=== PATIENT | female | born 1960 | race African-American/Black ===

== ENCOUNTER → 2016-03-27 | Day surgery (SDC) | payer OTHER ==
--- NOTE | 2016-03-28 09:57 | PATH ---
Surgical Pathology Report Patient Name: SHLOMO CHACON [facility]. Rec. #: [id number] /Age/Gender: 1960 (Age: 55) / F Account: [id number] Location: [facility] RADIOLOGY U Taken: 03/27/2016 Received: 03/27/2016 Reported: 03/28/2016 Physicians: Tyra Thrasher M.D. Specimen(s) Received RIGHT BREAST BIOPSY 11 O'CLOCK, 6CM FN Clinical History Hypoechoic mass 11:00, 6 cmfn Probably benign Final Diagnosis RIGHT BREAST, 11:00 6 CM FROM NIPPLE, ULTRASOUND GUIDED NEEDLE CORE BIOPSY: SCLEROSED FIBROADENOMA. Electronically Signed Baron Zuniga M.D. Gross Description Received in formalin, labeled "right breast biopsy 11:00, 6 cmfn," are 3 fernandez-yellow, cylindrical portions of fibroadipose tissue ranging from 2.0-2.6 cm. in length and averaging 0.2 cm. in diameter. The specimen is submitted in toto in one cassette. Time to formalin fixation: 2 minutes Total formalin fixation time: Approximately 9 hours. /03/27/2016 saudi03/27/2016
== END | disposition home or self-care (01) ==
LOC: FRADUS-SUR 08:05
PROVIDERS: ATTEND Family Medicine
PROC: 0HBT3ZX Excision of Right Breast, Percutaneous Approach, Diagnostic (ICD-10-PCS; principal; 2016-03-27)
DX: N63 Unspecified lump in breast (principal); D24.1 Benign neoplasm of right breast
CPT/HCPCS: 19083; 87899; 88305-TC; A4648; G0206-TC